=== PATIENT | male | born 1975 | race Caucasian/White ===

== ENCOUNTER 2019-02-20 15:01 | Emergency (ER) | payer SELFPAY ==
[~2019-02-20] VITALS: Ht 172.7 cm; Wt 75.0 kg
[2019-02-20 15:46] LABS: HEMATOCRIT 38.8 % (39.0-50.0); HEMOGLOBIN 13.9 g/dl (14.0-18.0); IMMATURE GRANULOCYTES 0.4 % (0.0-5.0); MEAN CELL VOLUME 92.8 fL CALC (80.0-100.0); MEAN CORPUSCULAR HGB 33.3 pG CALC (26.0-32.0); MEAN CORPUSCULAR HGB CONC 35.8 g/L CALC (32.0-36.0); NEUT# 8.7 thou/uL (1.82-7.42); RED BLOOD COUNT 4.18 mill/uL (4.70-6.10); RED CELL DISTRI WIDTH 11.6 % (11.5-15.5)
[2019-02-20 16:11] LABS: ALBUMIN 4.9 g/dL (3.2-5.0); ALKALINE PHOSPHATASE 110 u/l (38-126); ANION GAP 19 (6-22 (CALC)); BILIRUBIN, TOTAL 0.6 mg/dL (0.0-1.4); BUN 13 mg/dL (9-20); BUN/CREATININE RATIO 12 (12-20 (CALC)); CARBON DIOXIDE 20 mmol/l (22-30); CHLORIDE 103 mmol/l (95-108); CREATININE 1.1 mg/dL (0.7-1.3); GFR > 60 ML/MIN (>=60 (CALC)); GFR FOR AFR.AMER. > 60 ML/MIN (>=60 (CALC)); LIPASE 35 u/l (23-300); POTASSIUM 3.6 mmol/l (3.5-5.1); SGOT/AST 26 u/l (17-59); SODIUM 138 mmol/l (137-146); TOTAL PROTEIN 8.1 g/dL (6.3-8.2)
[2019-02-20] MEDS ORDERED: TAMSULOSIN0.4 MG PO (17:20)
[2019-02-20] MEDS ORDERED: HYDROCO/APAP1 TA9 PO (17:20)
[2019-02-20] MEDS ORDERED: ONDANSETRON4 MG PO (17:20)
[2019-02-20 17:29] VITALS: BP 158/88
== END 2019-02-20 17:40 | disposition home or self-care (01) | DRG 694 ==
LOC: ED 15:01
PROVIDERS: Family Medicine
DX: N13.2 Hydronephrosis with renal and ureteral calculous obstruction (principal)